=== PATIENT | female | born 1980 | race Caucasian/White ===

== ENCOUNTER 2016-12-01 15:23 | Emergency (ER) | payer OTHER, MEDICAID ==
[2016-12-01 15:43] VITALS: BP 146/79
[2016-12-01] MEDS ORDERED: Bacitracin Oint 1 GM U/D Packet TOP ONE (15:50)
[2016-12-01] MEDS ORDERED: Diphtheria,Pertussis(Acell),Tetanus Vaccine 0.5 ML SDV IM ONE (16:04)
--- NOTE | 2016-12-01 16:08 | EDM.PDOC ---
ED HPI GENERAL MEDICAL PROBLEM - General Chief Complaint: General Stated Complaint: FISH HOOK Time Seen by Provider: 12/01/16 16:04 Source of Information: Reports: Patient History Limitations: Reports: No Limitations - History of Present Illness INITIAL COMMENTS - FREE TEXT/NARRATIVE: pt has a fishook in the rt index finger. She is not current with her tetanus. Onset: Today Duration: Hour(s): Location: Reports: Upper Extremity, Right Associated Symptoms: Reports: No Other Symptoms Right 2-Index finger Pain Score (Numeric/FACES): 9 - Related Data Allergies Allergy/AdvReac Type Severity Reaction Status Date / Time sulfamethoxazole Allergy Nausea and Verified 12/01/16 15:43 [From Bactrim] Vomiting trimethoprim [From Bactrim] Allergy Nausea and Verified 12/01/16 15:43 Vomiting Home Meds: Home Meds FLUoxetine HCl [Fluoxetine] 10 mg PO DAILY 12/01/16 [History] Past Medical History [employer] History: Reports: Endometriosis, Other (See Below) Other OB/BYN History: laprascopy Psychiatric History: Reports: Anxiety, Depression - Past Surgical History GI Surgical History: Reports: Appendectomy, Cholecystectomy Social & Family History - Tobacco Use Smoking Status *Q: Never Smoker - Caffeine Use Caffeine Use: Reports: None - Recreational Drug Use Recreational Drug Use: No ED ROS GENERAL - Review of Systems Review Of Systems: See Below Constitutional: Reports: No Symptoms HEENT: Reports: No Symptoms Respiratory: Reports: No Symptoms Cardiovascular: Reports: No Symptoms Endocrine: Reports: No Symptoms GI/Abdominal: Reports: No Symptoms Musculoskeletal: Reports: Other ( fish hook in the rt index finger) ED EXAM, GENERAL - Physical Exam Exam: See Below Free Text/Narrative:: pt has a treble hook in the rt index finger. Exam Limited By: No Limitations General Appearance: Alert, Anxious Ears: Normal TMs Nose: Normal Inspection Throat/Mouth: Normal Inspection Head: Atraumatic Neck: Normal Inspection Respiratory/Chest: No Respiratory Distress Cardiovascular: Regular Rate, Rhythm Extremities: Other ( pt has a fishook in the rt index finger. ) Neurological: Alert, Oriented Course - Vital Signs Last Recorded V/S: Last Vital Signs Temp 37.1 C 12/01/16 15:40 Pulse 86 12/01/16 15:40 Resp 16 12/01/16 15:40 BP 146/79 H 12/01/16 15:40 Pulse Ox 97 12/01/16 15:40 - Orders/Labs/Meds Meds: Medications Discontinued Medications Generic Name Dose Route Start Last Admin Trade Name Oli PRN Reason Stop Dose Admin Bacitracin 1 dose 12/01/16 15:50 Bacitracin Oint 1 Gm TOP 12/01/16 15:51 ONETIME ONE Lidocaine HCl 5 ml 12/01/16 15:50 Xylocaine-Mpf 1% INJECT 12/01/16 15:51 ONETIME ONE - Re-Assessments/Exams Free Text/Narrative Re-Assessment/Exam: 12/01/16 16:07 the pt has a fishook in the rt index finger. The area was cleansed and the area was infiltrated with lidocaine, The hook was pushed through and the bad cut off. The hook was removed without difficulty. Departure - Departure Time of Disposition: 16:09 Disposition: Home, Self-Care 01 Condition: Fair Clinical Impression: [place] injury to finger - Discharge Information Instructions: Puncture Wound, [id number] Referrals: PCP,None [Primary Care Provider] - Forms: ED Department Discharge Care Plan Goals: soak hand for tenderness. use bacatracin on the area.
== END 2016-12-01 16:15 | disposition home or self-care (01) ==
LOC: JP.ED 15:23
DX: S60.450A Superficial foreign body of right index finger, initial encounter (principal); Z90.49 Acquired absence of other specified parts of digestive tract; F41.9 Anxiety disorder, unspecified; F32.9 Major depressive disorder, single episode, unspecified; Z79.899 Other long term (current) drug therapy; Z88.1 Allergy status to other antibiotic agents; Z88.2 Allergy status to sulfonamides; W45.8XXA Other foreign body or object entering through skin, initial encounter
CPT/HCPCS: 90471; 90715; 99283; 99283-25